=== PATIENT | male | born 1995 | race Caucasian/White ===

== ENCOUNTER 2017-09-28 23:58 | Emergency (ER) | payer SELFPAY ==
[~2017-09-28] VITALS: Ht 177.8 cm; Wt 70.0 kg
[2017-09-29 00:08] VITALS: BP 127/80; PULSE 97; RESP 18; TEMP 98.9; O2SAT 100
[2017-09-29] MEDS ORDERED: ONDANSETRON HCL 4 MG/2 ML VIAL ONE (00:12)
[2017-09-29 00:15] VITALS: RESP 16; O2SAT 100
[2017-09-29] MEDS ORDERED: SODIUM CHLOR 0.9% 1000 ML INJ 1,000 ML IV ONE (00:15)
[2017-09-29] MEDS ORDERED: ONDANSETRON HCL 4 MG/2 ML VIAL IV PUSH ONE (00:15)
--- NOTE | 2017-09-29 00:17 | PD ---
HPI Chief Complaint: Alcohol/Drug Intoxication Time Seen by Provider: 00:10 Travel History International Travel<30 days: No Contact w/Intl Traveler<30days: No Traveled to known affect area: No History of Present Illness HPI 22-year-old male was brought in by EMS for intoxication. Patient was found intoxicated locally. Patient denies any headache. Patient denies any chest pain or shortness of breath. Patient complained of nausea. Patient denies abdominal pain. Patient denies any focal weakness or numbness of the extremity. Patient denies any medical problem. Patient denies any allergies. Patient states that he has been drinking alcohol tonight. [facility] Social History Tobacco Use: No Allergies-Medications (Allergen,Severity, Reaction): Coded Allergies: No Known Allergies (Unverified , 09/29/17) Review of Systems General / Constitutional: No: Fever Eyes: No: Visual changes HENT: No: Headaches Cardiovascular: No: Chest Pain or Discomfort Respiratory: No: Shortness of Breath Gastrointestinal: Positive: Nausea, Vomiting, No: Abdominal Pain Genitourinary: No: Dysuria Musculoskeletal: No: Pain Skin: No Rash Neurologic: No: Weakness Psychiatric: No: Depression Endocrine: No: Polydipsia Hematologic/Lymphatic: No: Easy Bruising Physical Exam Narrative GENERAL: Well-nourished, well-developed patient. SKIN: Focused skin assessment warm/dry. HEAD: Normocephalic. EYES: No scleral icterus. No injection or drainage. NECK: Supple, trachea midline. No JVD or lymphadenopathy. CARDIOVASCULAR: Regular rate and rhythm without murmurs, gallops, or rubs. RESPIRATORY: Breath sounds equal bilaterally. No accessory muscle use. GASTROINTESTINAL: Abdomen soft, non-tender, nondistended. MUSCULOSKELETAL: No cyanosis, or edema. BACK: Nontender without obvious deformity. No CVA tenderness. Neurologic exam: Patient is intoxicated however answer questions appropriately. Patient moves all extremities well. No obvious focal neurological deficit. Data Data Last Documented VS Vital Signs Date Time Temp Pulse Resp B/P (MAP) Pulse Ox O2 Delivery O2 Flow Rate FiO2 09/29/17 00:15 16 100 Room Air 09/29/17 00:08 98.9 97 127/80 (96) Orders Orders Ondansetron Inj (Zofran Inj) (09/29/17 00:12) Ondansetron Inj (Zofran Inj) (09/29/17 00:15) Sodium Chlor 0.9% 1000 Ml Inj (Ns 1000 M (09/29/17 00:15) Basic Metabolic Panel (Bmp) (09/29/17 00:14) Alcohol (Ethanol) (09/29/17 00:14) Iv Access Insert/Monitor (09/29/17 00:14) Ecg Monitoring (09/29/17 00:14) Oximetry (09/29/17 00:14) Ed Discharge Order (09/29/17 06:00) Labs Laboratory Tests Test 09/29/17 00:50 Blood Urea Nitrogen 15 MG/DL Creatinine 1.05 MG/DL Random Glucose 105 MG/DL Calcium Level 8.7 MG/DL Sodium Level 137 MEQ/L Potassium Level 4.3 MEQ/L Chloride Level 103 MEQ/L Carbon Dioxide Level 23.9 MEQ/L Anion Gap 10 MEQ/L Estimat Glomerular Filtration Rate 88 ML/MIN Ethyl Alcohol Level 239 MG/DL MDM Medical Decision Making Medical Screen Exam Complete: Yes Emergency Medical Condition: Yes Interpretation(s) 1:52 AM. BMP within normal limits. Alcohol 239. Differential Diagnosis Differential diagnosis including intoxication, electrolyte imbalance. Narrative Course 22-year-old male was brought in by EMS for intoxication. Normal saline solution 1 L IV bolus. Zofran 4 mg IV. 6:18 AM. Patient is awake alert oriented 3. Patient is steady on his feet. Patient can ambulate without any problem. Patient will be discharged. Diagnosis Primary Impression: Alcohol intoxication Qualified Codes: F10.920 - Alcohol use, unspecified with intoxication, uncomplicated Patient Instructions: General Instructions Additional Instructions: Follow-up with personal physician. Med/Other Pt SpecificInfo: No Meds Exist/No RX given Disposition: 01 DISCHARGE HOME Condition: Stable Nnamdi Corey MD Sep 29, 2017 00:17
[2017-09-29 01:26] LABS: BICARBONATE 23.9 MEQ/L (21.0-32.0); CALCIUM 8.7 MG/DL (8.5-10.1); CREATININE 1.05 MG/DL (0.60-1.30)
== END 2017-09-29 06:03 | disposition home or self-care (01) ==
LOC: NEPC 23:58 → NEDAMB 09-29 06:03
DX: F10.920 Alcohol use, unspecified with intoxication, uncomplicated (principal); R11.2 Nausea with vomiting, unspecified
CPT/HCPCS: 80048; 80307; 96361; 96374; 99284; J2405; J7030